=== PATIENT | female | born 1965 | race Caucasian/White ===

== ENCOUNTER 2016-11-25 21:03 | Emergency (ER) | payer OTHER ==
[~2016-11-25] VITALS: Ht 162.6 cm; Wt 72.6 kg
[~2016-11-25 21:03] MED LIST: ACETAMINOPHEN/O1 TAB PO; ALEVE220 MG PO; BUSPIRONE HCL5 MG PO; CIPRO 500MG TA500 MG PO; CITALOPRAM HYDR20 MG PO; CLONIDINE HYDR0.2 MG PO; DILAUDID2 MG PO; ENDOCET 325 MG-1 TA1 PO; GABAPENTIN300 MG PO; GEMFIBROZIL600 MG PO; KETOROLAC TROME10 M1 PO; LITHIUM CARBON150 MG PO; LITHIUM CARBON300 M2 PO; NAPROXEN500 MG PO; PERCOCET 325 MG1 TA2 PO; PERCOCET 5-3251 EACH PO; PRILOSEC 20MG C20 MG PO; ZOFRAN ODT4 MG PO; ZOFRAN4 M1 PO; ZOFRAN4 M1 SL
--- NOTE | 2016-11-25 22:13 | ED INFLUENZA/URI COMPLAINT ---
History of Present Illness General Chief Complaint: Chest Pain Stated Complaint: SHORTNESS OF BREATH,CHEST PAIN Source: patient, old records Exam Limitations: no limitations Vital Signs & Intake/Output Vital Signs & Intake/Output Vital Signs Date Time Temp Pulse Resp B/P Pulse O2 O2 Flow FiO2 Ox Delivery Rate 11/25 2259 100.4 102 20 135/78 95 Room Air 11/25 2213 97 Room Air 11/25 2152 98 11/25 2120 101.9 103 24 181/96 97 Room Air Allergies Coded Allergies: Penicillins (Severe, HIVES 01/28/16) Reconcile Medications Albuterol Sulfate (Proair Hfa) 90 MCG HFA.AER.AD 2-4 PUF INH Q4-6 PRN PRN shortness of breath Azithromycin (Zithromax) 250 MG TABLET 1 TAB PO DAILY bronchitis Benzonatate (Tessalon Perle) 100 MG CAPSULE 1 CAP PO TID PRN cough Ibuprofen 800 MG TABLET 1 TAB PO Q6PRN PRN pain, fever Triage Note: TRIAGE: PATIENT TO ER FROM HOME REPORTS GENERAL BODY PAIN X 4 DAYS W/ PRODUCTUIVE COUGH W/ CLEAR PHELEM AND CHILLS. PATIENT REPORTS TONIGHT HAVING CP INTO SHOULDERS AND LEGS. PATIENT ALSO REPORTING SOB D/T COUGHING, "FEELS LIKE THE COUGH IS RIPPING MY CHEST APART." +SORE THROAT. PATIENT WEARING MASK THROUGHOUT TRIAGE. EKG OBTAINED. Triage Nurses Notes Reviewed? yes Onset: 4 days ago Duration: day(s):, constant, continues in ED Timing: recent history Severity: moderate Prior Episodes/Possible Cause: illness exposure No Modifying Factors: none Associated Symptoms: cough, fever/chills, muscle aches, nasal congestion, nasal drainage, sore throat LMP (ages 10-50): post menopausal : No Patient currently breastfeeds: No HPI: 4 days prior to admission patient complains of productive cough nasal congestion fever chills muscle aches sore throat. She denies nausea vomiting diarrhea abdominal pain headache dysuria rash bleeding. Past History Travel History Traveled to [place] past 21 day No Medical History Any Pertinent Medical History? 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 No Review of Systems Review of Systems Constitutional: Reports: see HPI, chills, fever, malaise. EENTM: Reports: see HPI, nasal congestion, throat pain. Respiratory: Reports: see HPI, cough, sputum production. Cardiovascular: Reports: see HPI, chest pain. GI: Reports: no symptoms. Genitourinary: Reports: no symptoms. Musculoskeletal: Reports: no symptoms. Skin: Reports: no symptoms. Neurological/Psychological: Reports: no symptoms. Hematologic/Endocrine: Reports: no symptoms. Immunologic/Allergic: Reports: no symptoms. All Other Systems: Reviewed and Negative Physical Exam Physical Exam General Appearance: well developed/nourished, alert, awake, anxious, moderate distress, obese Head: atraumatic, normal appearance Eyes: Bilateral: normal appearance, PERRL, EOMI. Ears, Nose, Throat: moist mucous membrane, nasal congestion, nasal drainage, pharyngeal erythema Neck: normal inspection, supple, full range of motion, trachea midline, lymphadenopathy (R), lymphadenopathy (L) Respiratory: normal breath sounds, chest non-tender, no respiratory distress, quiet respiration, lungs clear Cardiovascular: regular rate/rhythm, normal peripheral pulses, norml femoral pulses equa Peripheral Pulses: 4+ carotid (R), 4+ carotid (L), 2+ radial (R), 2+ radial (L) Gastrointestinal: normal bowel sounds, soft, non-tender, no organomegaly Back: normal inspection, normal range of motion, no vertebral tenderness Extremities: normal inspection, normal capillary refill, normal range of motion, no edema Neurologic/Psych: no motor/sensory deficits, awake, alert, oriented x 3, normal gait, normal mood/affect, 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 Skin: intact, normal color, warm/dry Lymphatic: adenopathy Core Measures Severe Sepsis Present: No Septic Shock Present: No Progress Differential Diagnosis: influenza, pneumonia, pharyngitis, sinusitis Plan of Care: Orders Procedure Date/time Status RAPID VIRAL INFLUENZA A 11/25 2123 Complete EKG 11/25 2104 Active Diagnostic Imaging: Viewed by Me: Radiology Read. Discussed w/RAD: Radiology Read. CXR Impression: no acute abnormality Initial ED EKG: none Departure Departure Time of Disposition: 2244 Disposition: HOME OR SELF CARE Condition: Stable Clinical Impression Primary Impression: Fever Qualifiers: Fever type: unspecified Qualified Code: R50.9 - Fever, unspecified Secondary Impressions: Acute bronchitis Qualifiers: Bronchitis organism: unspecified organism Qualified Code: J20.9 - Acute bronchitis, unspecified Referrals: SITA HALE MD (PCP/Family) Departure Forms: Customer Survey General Discharge Information Prescriptions: Current Visit Scripts Azithromycin (Zithromax) 1 TAB PO DAILY #4 TAB Benzonatate (Tessalon Perle) 1 CAP PO TID PRN cough #21 CAP Albuterol Sulfate (Proair Hfa) 2-4 PUF INH Q4-6 PRN PRN shortness of breath #1 INHAL Ibuprofen 1 TAB PO Q6PRN PRN pain, fever #50 TAB
--- NOTE | 2016-11-25 22:22 | RADIOLOGY REPORT ---
EXAMINATION: XR CHEST CLINICAL INFORMATION: Fever and productive cough. COMPARISON: Chest x-ray 10/24/2014. TECHNIQUE: PA and lateral views of the chest were obtained. FINDINGS: The lungs are hypoinflated but otherwise clear without focal airspace consolidation. No pleural effusions or pneumothoraces are identified. Cardiomediastinal contours are within normal limits. Soft tissues are unremarkable. No acute osseous abnormality is identified. IMPRESSION: No acute cardiopulmonary abnormality.
[2016-11-25] MEDS ORDERED: TESSALON PERLE100 M1 PO (22:48)
[2016-11-25] MEDS ORDERED: PROAIR HFA8.5 GM INH (22:48)
[2016-11-25] MEDS ORDERED: ZITHROMAX250 M2 PO (22:48)
[2016-11-25] MEDS ORDERED: IBUPROFEN800 M1 PO (22:49)
[2016-11-25 22:59] VITALS: BP 135/78
== END 2016-11-25 23:07 ==
LOC: ERH 21:03
DX: R06.02 Shortness of breath (principal); J20.9 Acute bronchitis, unspecified
CPT/HCPCS: 1263; 87804; 87804-59; 93005; 93010; J0456